=== PATIENT | male | born 1995 | race Caucasian/White ===

== ENCOUNTER 2016-12-04 13:12 | Observation (INO) | payer OTHER ==
[~2016-12-04] VITALS: Ht 170.2 cm; Wt 97.0 kg
[2016-12-04 13:49] LABS: BASO % 0.1 % (0.2-1.2); EOS # 0.1 10_X3_uL (0.0-0.5); EOS % 0.4 % (0.8-7.0); GRAN # 12.3 10_X3_uL (1.8-5.4); GRAN % 91.5 % (34.0-67.9); LYMPH # 0.6 10_X3_uL (1.3-3.6); LYMPH % 4.7 % (21.8-53.1); MEAN CORPUSCULAR HEMOGLOBIN 30.8 pg (27.0-33.0); MEAN CORPUSCULAR HGB CONC 36.7 g/dL (32.0-36.0); MEAN CORPUSCULAR VOLUME 83.8 fL (79-92); MEAN PLATELET VOLUME 10.4 fl (7.5-11.5); MONO # 0.5 10_X3_uL (0.3-0.8); MONO % 3.3 % (5.3-12.2); PLATELET COUNT 228 x10_3/uL (163-337); RED BLOOD COUNT 5.85 x10_6/uL (4.6-6.1); RED CELL DISTRIBUTION WIDTH 13.7 % (11.6-14.4); WHITE BLOOD COUNT 13.5 x10_3/uL (4.2-9.1)
[2016-12-04 14:06] LABS: ALBUMIN 4.9 gm/dL (3.4-5.0); ALKALINE PHOSPHATASE 84 U/L (50-136); ALT/SGPT 48 U/L (7.53-40.17); AMYLASE 67 U/L (15.62-74.58); AST/SGOT 34 U/L (6.66-35.34); BILIRUBIN,TOTAL 0.85 mg/dL (0.0-1.0); BLOOD UREA NITROGEN 21 mg/dL (7-18); CALCIUM 9.9 mg/dL (8.7-10.7); CARBON DIOXIDE 22 mmol/L (21-32); CREATININE 0.8 mg/dL (0.6-1.3); GLUCOSE,RANDOM 123 mg/dL (70-99); LIPASE 29 U/L (6.75-60.75); POTASSIUM 4.1 mmol/L (3.5-5.1); SODIUM 136 mmol/L (136-145); TOTAL PROTEIN 7.8 gm/dL (6.4-8.2)
[2016-12-04 17:19] LABS: URINE BILIRUBIN NEGATIVE (NEGATIVE); URINE BLOOD NEGATIVE (NEGATIVE); URINE GLUCOSE (UA) NORMAL (NORMAL); URINE KETONE 1+ (NEGATIVE); URINE LEUKOCYTE ESTERASE TRACE (NEGATIVE); URINE NITRATE NEGATIVE (NEGATIVE); URINE PROTEIN 1+ (NEGATIVE); UROBILINOGEN NORMAL mg/dL (<1.0)
[2016-12-04 17:59] LABS: URINE SQUAMOUS EPITHELIAL CELL 0-10 /[HPF] (NONE SEEN); URINE WBC 0-5 /[HPF] (0-3)
[2016-12-04 18:00] LABS: URINE BACTERIA TRACE (NONE SEEN); URINE MUCUS 1+
[2016-12-05 06:43] LABS: BLOOD UREA NITROGEN 16 mg/dL (7-18); CALCIUM 8.8 mg/dL (8.7-10.7); CARBON DIOXIDE 25 mmol/L (21-32); CREATININE 0.8 mg/dL (0.6-1.3); GLUCOSE,RANDOM 104 mg/dL (70-99); POTASSIUM 4.1 mmol/L (3.5-5.1); SODIUM 137 mmol/L (136-145)
[2016-12-05 07:00] LABS: HEMATOCRIT 44.5 % (40-51); HEMOGLOBIN 15.3 g/dL (13.7-17.5); MEAN CORPUSCULAR HEMOGLOBIN 29.9 pg (27.0-33.0); MEAN CORPUSCULAR HGB CONC 34.4 g/dL (32.0-36.0); MEAN CORPUSCULAR VOLUME 86.9 fL (79-92); MEAN PLATELET VOLUME 10.7 fl (7.5-11.5); RED BLOOD COUNT 5.12 x10_6/uL (4.6-6.1); RED CELL DISTRIBUTION WIDTH 13.7 % (11.6-14.4); WHITE BLOOD COUNT 8.4 x10_3/uL (4.2-9.1)
== END 2016-12-05 10:45 | disposition home or self-care (01) ==
LOC: ER 13:12 → MS 17:09
PROVIDERS: Emergency Medicine; ADMIT Surgery
DX: K52.9 Noninfective gastroenteritis and colitis, unspecified (principal); R11.2 Nausea with vomiting, unspecified; R10.31 Right lower quadrant pain; D72.829 Elevated white blood cell count, unspecified
CPT/HCPCS: 36415; 80048; 80053; 81001; 82150; 83605; 83690; 85025; 96361; 96365; 96366; 96367; 96375; 96376; 99070; 99285-25; G0378; J1885